=== PATIENT | male | born 1965 | race African-American/Black ===

== ENCOUNTER 2017-11-07 22:28 | Emergency (ER) | payer OTHER ==
[~2017-11-07] VITALS: Ht 162.6 cm; Wt 67.1 kg
[2017-11-07 23:00] VITALS: TEMP 98.1
[2017-11-08 00:45] LABS: PLATELET COUNT 189 K/uL (142-355)
[2017-11-08 00:55] LABS: POTASSIUM 3.5 mmol/L (3.6-5.2)
[2017-11-08 02:26] VITALS: BP 115/71
== END 2017-11-08 02:27 | disposition home or self-care (01) ==
LOC: ED 22:28
PROVIDERS: Emergency Medicine
DX: K59.09 Other constipation (principal); R10.84 Generalized abdominal pain
CPT/HCPCS: 36415; 74022; 80053; 81000; 82150; 83690; 85027; 99283